=== PATIENT | male | born 1980 | race American Indian/Alaskan Native ===

== ENCOUNTER 2020-02-13 21:28 | Emergency (ER) | payer OTHER ==
[~2020-02-13] VITALS: Ht 167.6 cm; Wt 68.0 kg
[~2020-02-13 21:28] MED LIST: PRILOSEC40 MG PO
== END 2020-02-14 04:26 | disposition home or self-care (01) ==
LOC: ED 21:28
DX: F10.129 Alcohol abuse with intoxication, unspecified (principal); F17.200 Nicotine dependence, unspecified, uncomplicated; Z88.0 Allergy status to penicillin; Y90.8 Blood alcohol level of 240 mg/100 ml or more
CPT/HCPCS: 99284

== ENCOUNTER 2024-12-04 22:26 | Emergency (ER) | payer OTHER ==
[~2024-12-04] VITALS: Ht 167.6 cm; Wt 55.0 kg
[2024-12-05 03:02] LABS: AMPHETAMINES, URINE POSITIVE (NEGATIVE); BARBITURATES, URINE NEGATIVE (NEGATIVE); BENZODIAZEPINE, URINE NEGATIVE (NEGATIVE); BUPRENORPHINE, URINE NEGATIVE (NEGATIVE); CANNABINOID, URINE POSITIVE (NEGATIVE); COCAINE, URINE NEGATIVE (NEGATIVE); ECSTASY, URINE NEGATIVE (NEGATIVE); FENTANYL, URINE POSITIVE (NEGATIVE); METHADONE, URINE NEGATIVE (NEGATIVE); OPIATES, URINE NEGATIVE (NEGATIVE); OXYCODONE, URINE NEGATIVE (NEGATIVE); PHENCYCLIDINE, URINE NEGATIVE (NEGATIVE)
[2024-12-05 05:35] VITALS: BP 104/81
== END 2024-12-05 05:36 | disposition home or self-care (01) ==
LOC: ED 22:26
PROVIDERS: Internal Medicine
DX: F19.10 Other psychoactive substance abuse, uncomplicated (principal); F17.200 Nicotine dependence, unspecified, uncomplicated; Z88.0 Allergy status to penicillin
CPT/HCPCS: 80307; 99285

== ENCOUNTER 2025-04-07 16:58 | Emergency (ER) | payer OTHER ==
[~2025-04-07] VITALS: Ht 167.6 cm; Wt 55.0 kg
[2025-04-07] MEDS ORDERED: OLANZapine 10 MG VIAL IM ONE (17:45)
[2025-04-07 18:27] LABS: BASOPHILS 0.7 % (0.2-1.2); EOSINOPHILS 0.6 % (0.8-7.0); LYMPHOCYTES 31.0 % (21.8-53.1); MCH 31.1 PG (25.7-32.2); MCHC 34.4 g/dL (32.3-36.5); MCV 90.4 fL (79.0-92.2); MONOCYTES 6.0 % (5.3-12.2); NEUTROPHILS 61.2 % (34.0-67.9); RBC 4.08 M/uL (4.63-6.08)
[2025-04-07 18:48] LABS: ALCOHOL, MEDICAL 246 ng/dL (<3); ALT (SGPT) 24 U/L (14-59); AST (SGOT) 26 U/L (15-37); GLOMERULAR FILTRATION RATE,EST 104 mL/min (>60); PROTEIN, TOTAL 6.5 g/dL (6.4-8.2); TSH, 3RD GENERATION 0.465 uIU/mL (0.358-3.740); UREA NITROGEN 12 mg/dL (7-18)
[2025-04-07] MEDS ORDERED: LORazepam 2 MG/ML VIAL IV ONE (19:15)
[2025-04-07] MEDS ORDERED: ETOMIDATE 40 MG/20 ML VIAL IV ONE (20:00)
[2025-04-07 20:23] LABS: BLOOD/HGB, URINE NEGATIVE (Negative); KETONE, URINE NEGATIVE (Negative); LEUK ESTERASE, URINE NEGATIVE (negative); NITRITE, URINE NEGATIVE (negative)
[2025-04-07 20:37] LABS: AMPHETAMINES, URINE POSITIVE (NEGATIVE); BARBITURATES, URINE NEGATIVE (NEGATIVE); BENZODIAZEPINE, URINE NEGATIVE (NEGATIVE); CANNABINOID, URINE POSITIVE (NEGATIVE); COCAINE, URINE NEGATIVE (NEGATIVE); ECSTASY, URINE NEGATIVE (NEGATIVE); FENTANYL, URINE POSITIVE (NEGATIVE); METHADONE, URINE NEGATIVE (NEGATIVE); OPIATES, URINE NEGATIVE (NEGATIVE); OXYCODONE, URINE NEGATIVE (NEGATIVE); PHENCYCLIDINE, URINE NEGATIVE (NEGATIVE)
[2025-04-08 09:45] VITALS: BP 119/75
== END 2025-04-08 09:47 | disposition home or self-care (01) ==
LOC: ED 16:58
PROVIDERS: Emergency Medicine
DX: G93.40 Encephalopathy, unspecified (principal); F19.10 Other psychoactive substance abuse, uncomplicated; F17.200 Nicotine dependence, unspecified, uncomplicated; Z79.899 Other long term (current) drug therapy; Z88.0 Allergy status to penicillin
CPT/HCPCS: 36415; 51701; 70450; 80053; 80307; 81003; 84443; 85025; 96372; 96374; 96375; 99285-25; G0480; J2060